=== PATIENT | male | born 1995 | race Asian ===

== ENCOUNTER 2017-07-28 22:04 | Emergency (ER) | payer OTHER ==
[2017-07-29] MEDS: DERMABOND TOPICAL SKIN ADHESIVE TOP (01:00)
== END 2017-07-29 01:14 | disposition home or self-care (01) ==
LOC: M ED 22:04
DX: S01.111A Laceration without foreign body of right eyelid and periocular area, initial encounter (principal); W22.8XXA Striking against or struck by other objects, initial encounter; Y92.9 Unspecified place or not applicable; Y93.A1 Activity, exercise machines primarily for cardiorespiratory conditioning; Y99.9 Unspecified external cause status; F17.200 Nicotine dependence, unspecified, uncomplicated
CPT/HCPCS: 12011